=== PATIENT | male | born 1970 | race Native Hawaiian/Other Pacific Islander ===

== ENCOUNTER 2017-06-16 05:18 | Emergency (ER) | payer OTHER ==
[~2017-06-16] VITALS: Ht 170.2 cm; Wt 93.0 kg
[2017-06-16 05:25] VITALS: BP 163/99
== END 2017-06-16 06:54 | disposition home or self-care (01) ==
LOC: ER 05:18
DX: M10.9 Gout, unspecified (principal)

== ENCOUNTER 2021-10-24 13:37 | Emergency (ER) | payer OTHER ==
[~2021-10-24] VITALS: Ht 170.2 cm; Wt 90.7 kg
[2021-10-24] MEDS ORDERED: KETOROLAC TROMETH 60MG/2ML VIAL IM ONE (15:00)
[2021-10-24] MEDS ORDERED: methylPREDNISolone SOD SUCC 125 MG/2 ML VL IM ONE (15:00)
[2021-10-24 15:06] VITALS: BP 161/108
[2021-10-24] MEDS ORDERED: COLC1TAB3 PO (15:21)
[2021-10-24] MEDS ORDERED: INDO50CA82 PO (15:21)
== END 2021-10-24 15:29 | disposition home or self-care (01) ==
LOC: ER 13:37
DX: M10.9 Gout, unspecified (principal)
CPT/HCPCS: 96372; 99284; J1885; J2930